=== PATIENT | male | born 1965 | race Caucasian/White ===

== ENCOUNTER 2016-06-20 10:30 | Observation (INO) | payer MEDICARE ==
[~2016-06-20] VITALS: Ht 175.3 cm; Wt 78.3 kg
[2016-06-20] MEDS ORDERED: ZIPRASIDONE 20 MG INJ IM ONE ×2 (12:00→13:16)
[2016-06-20 12:43] LABS: ASPARTATE AMINO TRANSFERASE 23 U/L (15-37); BLOOD UREA NITROGEN 27 mg/dL (7-18)
[2016-06-20 12:48] LABS: ACETAMINOPHEN < 2 mcg/mL (10-30)
[2016-06-20] MEDS ORDERED: ZIPRASIDONE 20MG CAPSULE ONE ×2 (13:15→17:36)
[2016-06-20 13:52] LABS: DAU SCREEN DISCLAIMER
[2016-06-20] MEDS ORDERED: ZIPRASIDONE 20MG CAPSULE PO PRN (17:30)
[2016-06-20] MEDS ORDERED: ZIPRASIDONE 20 MG INJ IM PRN (17:30)
[2016-06-20] MEDS: AMLODIPINE 5 MG TABLET PO SCH (17:30)
[2016-06-20] MEDS ORDERED: DOCUSATE 100 MG CAPSULE PO PRN (17:30)
[2016-06-20] MEDS ORDERED: ACETAMINOPHEN 325 MG TABLET PO PRN (17:30)
[2016-06-20] MEDS ORDERED: ONDANSETRON ODT 4 MG PO PRN (17:30)
[2016-06-20] MEDS ORDERED: LORazepam 1MG TABLET ONE (17:36)
[2016-06-20] MEDS ORDERED: ACETAMINOPHEN 325 MG TABLET ONE (17:47)
[2016-06-20] MEDS: LORazepam 1MG TABLET PO PRN (18:16)
[2016-06-20 19:53] LABS: HEMOGLOBIN 16.4 g/dL (13.7-18.0)
[2016-06-20 22:00] VITALS: BP 101/68
[2016-06-21 02:00] VITALS: BP 131/89
[2016-06-21] MEDS ORDERED: ASEN10TA9 PO (02:50)
[2016-06-21 05:20] LABS: HEMOGLOBIN 14.9 g/dL (13.7-18.0)
[2016-06-21 06:40] VITALS: BP 129/78
[2016-06-21] MEDS: AMLODIPINE 5 MG TABLET PO SCH (09:10)
[2016-06-21 13:38] VITALS: BP 114/74
[2016-06-21 18:24] VITALS: BP 124/74
[2016-06-21] MEDS: LORazepam 1MG TABLET PO PRN (20:27)
[2016-06-22 01:56] VITALS: BP 114/73
[2016-06-22 08:00] VITALS: BP 119/74
[2016-06-22] MEDS: AMLODIPINE 5 MG TABLET PO SCH (08:08)
[2016-06-22] MEDS: ZIPRASIDONE 20MG CAPSULE PO SCH ×2 (11:30→20:56)
[2016-06-22] MEDS: LORazepam 1MG TABLET PO PRN (12:46)
[2016-06-22 14:00] VITALS: BP 130/81
[2016-06-22] MEDS ORDERED: ZIPRASIDONE 20 MG INJ IM PRN (17:30)
[2016-06-22 20:10] VITALS: BP 136/88
[2016-06-23 01:43] VITALS: BP 116/78
[2016-06-23 05:28] LABS: HEMOGLOBIN 14.4 g/dL (13.7-18.0)
[2016-06-23 05:37] LABS: BLOOD UREA NITROGEN 16 mg/dL (7-18)
[2016-06-23 07:41] VITALS: BP 164/74
[2016-06-23] MEDS: ZIPRASIDONE 20MG CAPSULE PO SCH ×2 (09:00→21:43)
[2016-06-23] MEDS: AMLODIPINE 5 MG TABLET PO SCH (10:34)
[2016-06-23 12:25] VITALS: BP 154/89
[2016-06-23 19:31] VITALS: BP 142/88
[2016-06-23] MEDS: LORazepam 1MG TABLET PO PRN (21:47)
[2016-06-24 08:24] VITALS: BP 152/87
[2016-06-24] MEDS: AMLODIPINE 5 MG TABLET PO SCH (08:56)
[2016-06-24] MEDS: ZIPRASIDONE 20MG CAPSULE PO SCH (09:05)
[2016-06-24] MEDS ORDERED: ZIPR20CA2 PO (12:58)
[2016-06-24] MEDS ORDERED: DOCU-30 PO (12:58)
[2016-06-24] MEDS ORDERED: AMLO10TA2 PO (12:58)
== END 2016-06-24 13:31 ==
LOC: ED 15:07 → EDIP 17:15 → INTOOBSV 20:16 → OBSVTOIN 20:16 → 3NE 21:50 → 3E 06-23 12:10
PROVIDERS: ADMIT Hospitalist; ATTEND Hospitalist
DX: R45.851 Suicidal ideations (principal); D72.829 Elevated white blood cell count, unspecified; F20.9 Schizophrenia, unspecified; I10 Essential (primary) hypertension; F17.200 Nicotine dependence, unspecified, uncomplicated; F12.10 Cannabis abuse, uncomplicated; Z91.14 Patient's other noncompliance with medication regimen
CPT/HCPCS: 36415; 70450; 71010; 80048; 80053; 80307; 80329; 81001; 82140; 83605; 83735; 85025; 87040; 93005; 96372; 99285; G0378; J3486; G0480

== ENCOUNTER 2016-07-05 18:47 | Observation (INO) | payer MEDICARE ==
[~2016-07-05] VITALS: Ht 175.3 cm; Wt 81.4 kg
[~2016-07-05 18:47] MED LIST: AMLO10TA2 PO; ASEN10TA9 PO; DOCU-30 PO; ZIPR20CA2 PO
[2016-07-05] MEDS ORDERED: ZIPR60CA2 PO (18:59)
[2016-07-05] MEDS ORDERED: OLANZAPINE 5 MG TABLET PO ONE (20:30)
[2016-07-05 20:48] LABS: DAU SCREEN DISCLAIMER
[2016-07-05 21:22] LABS: ASPARTATE AMINO TRANSFERASE 22 U/L (15-37); BLOOD UREA NITROGEN 10 mg/dL (7-18)
[2016-07-05 21:27] LABS: ACETAMINOPHEN < 2 mcg/mL (10-30)
[2016-07-05] MEDS ORDERED: TRAZODONE 50MG TABLET PO PRN (23:30)
[2016-07-05] MEDS ORDERED: POLYETHYLENE GLYCOL 17 GM PACKET PO PRN (23:30)
[2016-07-05] MEDS ORDERED: ACETAMINOPHEN 325 MG TABLET PO PRN (23:30)
[2016-07-05] MEDS: ZIPRASIDONE 20MG CAPSULE PO SCH (23:30)
[2016-07-05] MEDS ORDERED: BISACODYL 10 MG SUPP PR PRN (23:30)
[2016-07-05] MEDS ORDERED: DOCUSATE 100 MG CAPSULE PO PRN (23:30)
[2016-07-05 23:59] VITALS: BP 143/87
[2016-07-06] MEDS ORDERED: POTASSIUM CHLORIDE 20 MEQ TAB.ER.PRT PO ONE
[2016-07-06 07:46] VITALS: BP 132/87
[2016-07-06] MEDS: ZIPRASIDONE 20MG CAPSULE PO SCH ×2 (09:25→20:12)
[2016-07-06] MEDS: AMLODIPINE 5 MG TABLET PO SCH (09:25)
[2016-07-06] MEDS: OLANZAPINE 5 MG TABLET PO PRN ×2 (09:25→17:08)
[2016-07-06 19:36] VITALS: BP 133/76
[2016-07-06 19:44] VITALS: BP 175/117
[2016-07-07 05:03] LABS: BLOOD UREA NITROGEN 17 mg/dL (7-18)
[2016-07-07] MEDS: AMLODIPINE 5 MG TABLET PO SCH (07:13)
[2016-07-07] MEDS: ZIPRASIDONE 20MG CAPSULE PO SCH ×2 (07:17→20:38)
[2016-07-07 08:13] VITALS: BP 126/84
[2016-07-07 19:49] VITALS: BP 120/79
[2016-07-08 07:36] VITALS: BP 132/83
[2016-07-08] MEDS: AMLODIPINE 5 MG TABLET PO SCH (07:40)
[2016-07-08] MEDS: ZIPRASIDONE 20MG CAPSULE PO SCH (07:40)
[2016-07-08] MEDS: OLANZAPINE 5 MG TABLET PO PRN (10:02)
[2016-07-08 17:15] VITALS: BP 126/89
[2016-07-08 19:36] VITALS: BP 130/83
[2016-07-08] MEDS ORDERED: ZIPRASIDONE 20MG CAPSULE ONE (20:49)
[2016-07-08] MEDS: ZIPRASIDONE 40MG CAPSULE PO SCH (20:57)
[2016-07-09] MEDS: AMLODIPINE 5 MG TABLET PO SCH (07:31)
[2016-07-09] MEDS: ZIPRASIDONE 40MG CAPSULE PO SCH ×2 (07:31→20:47)
[2016-07-09 07:45] VITALS: BP 143/93
[2016-07-09 19:53] VITALS: BP 137/89
[2016-07-10 07:32] VITALS: BP 138/92
[2016-07-10] MEDS: AMLODIPINE 5 MG TABLET PO SCH (09:12)
[2016-07-10] MEDS: ZIPRASIDONE 40MG CAPSULE PO SCH ×2 (09:12→20:35)
[2016-07-10] MEDS: OLANZAPINE 5 MG TABLET PO PRN (11:18)
[2016-07-10 19:34] VITALS: BP 117/78
[2016-07-11] MEDS: AMLODIPINE 5 MG TABLET PO SCH (08:26)
[2016-07-11] MEDS: ZIPRASIDONE 40MG CAPSULE PO SCH ×2 (08:27→20:22)
[2016-07-11 08:37] VITALS: BP 142/88
[2016-07-11] MEDS: OLANZAPINE 5 MG TABLET PO PRN ×2 (14:46→17:57)
[2016-07-11 20:03] VITALS: BP 138/94
[2016-07-12 07:30] VITALS: BP 122/81
[2016-07-12] MEDS: ZIPRASIDONE 40MG CAPSULE PO SCH ×2 (08:19→20:42)
[2016-07-12] MEDS: AMLODIPINE 5 MG TABLET PO SCH (08:19)
[2016-07-12] MEDS: OLANZAPINE 5 MG TABLET PO PRN ×2 (10:17→17:54)
[2016-07-12 19:33] VITALS: BP 118/79
[2016-07-13 07:54] VITALS: BP 115/81
[2016-07-13] MEDS: ZIPRASIDONE 40MG CAPSULE PO SCH ×2 (08:07→20:22)
[2016-07-13] MEDS: AMLODIPINE 5 MG TABLET PO SCH (08:07)
[2016-07-13 19:22] VITALS: BP 148/92
[2016-07-14 07:29] VITALS: BP 124/84
[2016-07-14] MEDS: ZIPRASIDONE 40MG CAPSULE PO SCH ×2 (08:07→20:20)
[2016-07-14] MEDS: AMLODIPINE 5 MG TABLET PO SCH (08:08)
[2016-07-14 19:39] VITALS: BP 124/75
[2016-07-15] MEDS: AMLODIPINE 5 MG TABLET PO SCH (07:23)
[2016-07-15] MEDS: ZIPRASIDONE 40MG CAPSULE PO SCH (07:23)
[2016-07-15 08:00] VITALS: BP 136/87
[2016-07-15] MEDS ORDERED: AMLO10TA2 PO (10:52)
[2016-07-15] MEDS ORDERED: ZIPR80CA2 PO (10:52)
== END 2016-07-15 12:15 | disposition home or self-care (01) ==
LOC: ED 19:36 → EDIP 23:19 → 3E 23:57
PROVIDERS: ADMIT Internal Medicine; ATTEND Internal Medicine
DX: F23 Brief psychotic disorder (principal); I10 Essential (primary) hypertension; F20.9 Schizophrenia, unspecified; F17.210 Nicotine dependence, cigarettes, uncomplicated; F12.10 Cannabis abuse, uncomplicated; E87.1 Hypo-osmolality and hyponatremia; E87.6 Hypokalemia; R17 Unspecified jaundice; F22 Delusional disorders
CPT/HCPCS: 36415; 80048; 80053; 80307; 80329; 83735; 84100; 85025; 93005; 99285; G0378; G0480